=== PATIENT | female | born 1995 | race African-American/Black ===

== ENCOUNTER 2021-03-02 06:45 | Inpatient (IN) | payer BC, OTHER ==
[2021-03-02] MEDS ORDERED: BUTORPHANOL TARTRATE 1 MG/ML VIAL IVPB ONE (07:55)
[2021-03-02] MEDS ORDERED: BETAMET ACET/BETAMET NA PH 30 MG/5 ML VIAL IM ONE (07:58)
[2021-03-02] MEDS ORDERED: CLINDAMYCIN 600MG PREMIX IVPB 600 MG/50 ML BAG IVPB SCH (08:00)
[2021-03-02] MEDS ORDERED: CLINDAMYCIN 900 MG PREMIX IVPB 900 MG/50 ML BAG IVPB ONE (08:42)
[2021-03-02] MEDS ORDERED: BETAMET ACET/BETAMET NA PH 30 MG/5 ML VIAL ONE (08:42)
[2021-03-02 08:48] LABS: INR 0.93 (0.83-1.09); PROTHROMBIN TIME (PATIENT) 11.3 SEC (9.7-13.0)
[2021-03-02 08:51] LABS: ACTIVATED PTT 26.9 SECONDS (25.2-36.5)
[2021-03-02 08:53] LABS: BASO % 0.2 % (0-2.0); HEMATOCRIT 36.2 % (32.4-45.2); HEMOGLOBIN 12.1 GM/dL (10.7-15.3); LYMPH % 31.1 % (8-40); MCH 26.9 pg (25.7-33.7); MCHC 33.4 g/dl (32.0-36.0); MEAN CELL VOLUME 80.5 fl (80-96); MEAN PLT VOLUME 9.2 fl (7.5-11.1); MONO % 7.7 % (3.8-10.2); PLATELET COUNT 253 K/MM3 (134-434); RDW 16.1 % (11.6-15.6); WHITE BLOOD COUNT 6.2 K/mm3 (4.0-10.0)
[2021-03-02] MEDS: CLINDAMYCIN 900 MG PREMIX IVPB 900 MG/50 ML BAG IVPB SCH ×2 (08:53→18:14)
[2021-03-02] MEDS ORDERED: CLINDAMYCIN 900 MG PREMIX IVPB 900 MG/50 ML BAG IVPB SCH ×2 (09:00→10:00)
[2021-03-02 09:01] LABS: BLOOD UREA NITROGEN 10.4 mg/dL (7-18)
[2021-03-02 09:04] LABS: CREATININE 0.7 mg/dL (0.55-1.3)
[2021-03-02 09:41] VITALS: BMI 42.5
[2021-03-02 09:57] LABS: HIV INTERPRETATION NEGATIVE (NEGATIVE)
[2021-03-02] MEDS ORDERED: OXYTOCIN 30 UNITS in 0.9% NS 30 UNIT/500 ML INFUS.BAG IVPB ONE (12:28)
[2021-03-02] MEDS ORDERED: OXYTOCIN 30 UNITS in 0.9% NS 30 UNIT/500 ML INFUS.BAG IVPB SCH (12:30)
[2021-03-02] MEDS ORDERED: BUPIVACAINE HCL/PF 0.25% (2.5MG/ML) 10 ML VIAL ONE (15:41)
[2021-03-02] MEDS ORDERED: PCA PUMP NR ONE (15:43)
[2021-03-02] MEDS ORDERED: FENTANYL/BUPIVACAINE/NS/PF - PCEA - 50 ML DISP.SYRIN EP ONE (15:43)
[2021-03-02] MEDS ORDERED: NALOXONE HCL 0.4 MG/ML VIAL IVPUSH PRN (16:02)
[2021-03-02] MEDS ORDERED: FENTANYL/BUPIVACAINE/NS/PF - PCEA - 50 ML DISP.SYRIN EP SCH (16:15)
[2021-03-02] MEDS ORDERED: LIDOCAINE HCL 1% PRESERVATIVE FREE - 30ML VIAL ONE (16:52)
[2021-03-02] MEDS ORDERED: OXYTOCIN 20 UNITS in 0.9% NS 20 UNIT/1,000 ML INFUS.BAG IV ONE ×2 (16:52→19:50)
[2021-03-02] MEDS: OXYTOCIN 20 UNITS in 0.9% NS 20 UNIT/1,000 ML INFUS.BAG IV SCH ×2 (17:35→20:00)
[2021-03-02] MEDS ORDERED: BENZOCAINE 28 GM HEMORRHOIDAL OINTMENT TP PRN (17:43)
[2021-03-02] MEDS ORDERED: BENZOCAINE 20% 57 GM BOTTLE TP PRN (17:43)
[2021-03-02] MEDS ORDERED: METHYLERGONOVINE MALEATE 0.2 MG/1 ML AMP IM PRN (17:43)
[2021-03-02] MEDS ORDERED: BISACODYL 10 MG SUPP.RECT RC PRN (17:43)
[2021-03-02] MEDS ORDERED: WITCH HAZEL 50% (TUCKS) 40 PAD/JAR PAD TP PRN (17:43)
[2021-03-03] MEDS: ACETAMINOPHEN 325 MG TABLET (FP) PO PRN ×3 (01:52→23:46)
[2021-03-03] MEDS: IBUPROFEN 600 MG TABLET (FP) PO PRN ×3 (01:53→23:46)
[2021-03-03 08:35] LABS: BASO % 0.1 % (0-2.0); HEMATOCRIT 33.7 % (32.4-45.2); HEMOGLOBIN 11.3 GM/dL (10.7-15.3); MCH 26.6 pg (25.7-33.7); MCHC 33.6 g/dl (32.0-36.0); MEAN CELL VOLUME 79.3 fl (80-96); MEAN PLT VOLUME 9.4 fl (7.5-11.1); NEUT % 78.9 % (42.8-82.8); PLATELET COUNT 256 K/MM3 (134-434); RBC 4.25 M/mm3 (3.60-5.2); WHITE BLOOD COUNT 17.9 K/mm3 (4.0-10.0)
[2021-03-03] MEDS ORDERED: CLINDAMYCIN 900 MG PREMIX IVPB 900 MG/50 ML BAG IVPB SCH (09:00)
[2021-03-03] MEDS ORDERED: SENNOSIDES/DOCUSATE COMBO (SENNA PLUS) TABLET (UD) PO PRN (22:00)
[2021-03-04 09:43] VITALS: BP 120/72; PULSE 94; TEMP 97.6
[2021-03-04] MEDS: IBUPROFEN 600 MG TABLET (FP) PO PRN (10:22)
[2021-03-04] MEDS: ACETAMINOPHEN 325 MG TABLET (FP) PO PRN (10:22)
== END 2021-03-04 11:45 | disposition home or self-care (01) | DRG 807 ==
LOC: JLDR 06:45 → J3W 20:20
PROVIDERS: ADMIT Obstetrics & Gynecology; ATTEND Obstetrics & Gynecology
PROC: 10E0XZZ Delivery of Products of Conception, External Approach (ICD-10-PCS; principal; 2021-03-02)
DX: O42.013 Preterm premature rupture of membranes, onset of labor within 24 hours of rupture, third trimester (principal); Z37.0 Single live birth; O70.0 First degree perineal laceration during delivery; O99.334 Smoking (tobacco) complicating childbirth; F17.210 Nicotine dependence, cigarettes, uncomplicated; Z3A.35 35 weeks gestation of pregnancy
CPT/HCPCS: 36415; 59409; 80048; 85025; 85610; 85730; 86780; 86850; 86900; 86901; 87389; C9803; U0003; U0005